=== PATIENT | female | born 1945 | race Caucasian/White ===

== ENCOUNTER → 2017-04-04 | Outpatient (CLI) | payer MEDICARE, BC ==
[2017-04-04 16:25] LABS: HEMATOCRIT 38.7 % (37.0-47.0); HEMOGLOBIN 12.9 g/dl (12.5-16.0); MEAN CELL VOLUME 98 fl (80.0-100.0); MEAN CORPUSCULAR HEMOGLOBIN 33 pg (27.0-31.0); MEAN CORPUSCULAR HGB CONC 33 g/dl (33.0-37.0); MEAN PLATELET VOLUME 10.6 fl (7.4-10.4); PLATELET COUNT 260 K/mm3 (130-400); RED BLOOD COUNT 3.94 M/mm3 (4.10-5.30); WHITE BLOOD COUNT 7.1 K/mm3 (4.8-10.8)
[2017-04-04 17:29] LABS: ERYTHROCYTE SEDIMENTATION RATE 7 mm/hr (0-30)
== END ==
LOC: COL.LAB 15:15
PROVIDERS: Orthopaedic Surgery
DX: Z47.1 Aftercare following joint replacement surgery (principal); M25.861 Other specified joint disorders, right knee; M25.561 Pain in right knee; Z96.651 Presence of right artificial knee joint

== ENCOUNTER → 2017-06-08 | Outpatient (CLI) | payer MEDICARE, BC | LOC: MC.RAD 13:38 | DX: N64.52 Nipple discharge (principal) ==

== ENCOUNTER → 2017-08-09 | Outpatient (CLI) | payer MEDICARE, BC | LOC: MC.RAD 13:47 | DX: N64.52 Nipple discharge (principal) ==

== ENCOUNTER 2017-08-16 05:19 | Inpatient (IN) | payer MEDICARE, BC ==
[~2017-08-16] VITALS: Ht 154.9 cm; Wt 76.6 kg
[2017-08-16] MEDS ORDERED: NEURONTIN300 MG/CAP PO (05:26)
[2017-08-16] MEDS ORDERED: PRINIVIL20 MG PO (05:27)
[2017-08-16] MEDS ORDERED: LUMIGAN 2.5 ML2.5 M1 OP (05:27)
[2017-08-16] MEDS ORDERED: MULTIPLE VITAMI1 CAP PO (05:27)
[2017-08-16] MEDS ORDERED: CALCIUM CARBON650 M2 (05:27)
[2017-08-16] MEDS ORDERED: ASPIRIN 81M81 MG/TA2 PO (05:29)
[2017-08-16 05:56] LABS: BASO % 0.3 % (0.0-2.0); EOS # 0.1 (0.0-0.7); EOS % 0.6 % (0-4.0); GRAN # 8.2 (1.4-6.5); GRAN % 83.1 % (42.2-75.2); LYMPH # 1.1 (1.2-3.4); LYMPH % 11.3 % (20.0-51.0); MEAN CELL VOLUME 92 fl (80.0-100.0); MEAN CORPUSCULAR HGB CONC 32 g/dl (33.0-37.0); MEAN PLATELET VOLUME 9.7 fl (7.4-10.4); MONO # 0.4 (0.1-0.6); MONO % 4.3 % (1.7-9.3); PLATELET COUNT 319 K/mm3 (130-400); RED BLOOD COUNT 3.63 M/mm3 (4.10-5.30); REDCELL DISTRIBUTION WIDTH-CV 12.9 % (11.5-14.5)
[2017-08-16 05:59] LABS: HEMATOCRIT 33.4 % (37.0-47.0); HEMOGLOBIN 10.8 g/dl (12.5-16.0); MEAN CORPUSCULAR HEMOGLOBIN 30 pg (27.0-31.0)
[2017-08-16 06:09] LABS: ALBUMIN 3.9 gm/dL (3.5-5.0); BILIRUBIN,TOTAL 0.6 mg/dL (0.0-1.0); CALCIUM 9.8 mg/dL (8.4-10.2); CREATININE, serum 1.06 mg/dL (0.52-1.25); POTASSIUM 4.6 mmol/L (3.4-5.0); TOTAL PROTEIN 7.2 gm/dL (6.4-8.2)
[2017-08-16 07:24] LABS: COLLECTION METHOD CLEAN CATCH
[2017-08-16 07:49] LABS: MUCOUS Present /lpf; PH 8 (5-8); SQUAMOUS EPITHELIAL 0-2 /hpf; URINE APPEARANCE Cloudy; URINE BACTERIA None Seen /hpf; URINE BILIRUBIN Negative (NEGATIVE); URINE BLOOD Negative (NEGATIVE); URINE COLOR Yellow; URINE GLUCOSE Negative (NEGATIVE); URINE KETONE Negative (NEGATIVE); URINE LEUKOCYTE ESTERASE Negative (NEGATIVE); URINE NITRATE Negative (NEGATIVE); URINE PROTEIN(semi-quant) Negative (NEGATIVE); URINE UROBILINOGEN Negative (NEGATIVE)
[2017-08-16 09:42] VITALS: BP 132/69; PULSE 71; TEMP 98.1
[2017-08-16 13:05] VITALS: BP 129/62; PULSE 77; TEMP 98.1
[2017-08-16 21:30] VITALS: BP 110/56; PULSE 101; TEMP 97.6
[2017-08-16 21:45] VITALS: BP 108/59; PULSE 100
[2017-08-16 22:00] VITALS: BP 112/59; PULSE 101
[2017-08-16 23:15] VITALS: BP 119/62; PULSE 103; TEMP 97
[2017-08-17] VITALS (7 sets, daily range): BP systolic 96–126; BP diastolic 40–69; PULSE 105–118; TEMP 97.7–99.2
[2017-08-17 06:53] LABS: HEMATOCRIT 33.3 % (37.0-47.0); HEMOGLOBIN 10.6 g/dl (12.5-16.0); MEAN CELL VOLUME 93 fl (80.0-100.0); MEAN CORPUSCULAR HEMOGLOBIN 30 pg (27.0-31.0); MEAN CORPUSCULAR HGB CONC 32 g/dl (33.0-37.0); MEAN PLATELET VOLUME 10.5 fl (7.4-10.4); PLATELET COUNT 342 K/mm3 (130-400); RED BLOOD COUNT 3.58 M/mm3 (4.10-5.30); REDCELL DISTRIBUTION WIDTH-CV 13.1 % (11.5-14.5)
[2017-08-17 07:06] LABS: CALCIUM 8.4 mg/dL (8.4-10.2); CREATININE, serum 1.14 mg/dL (0.52-1.25); POTASSIUM 4.3 mmol/L (3.4-5.0)
[2017-08-18 02:00] VITALS: BP 175/50; PULSE 73; TEMP 98.4
[2017-08-18 05:54] VITALS: BP 126/54; PULSE 110; TEMP 98.7
[2017-08-18 06:34] LABS: MEAN CELL VOLUME 93 fl (80.0-100.0); MEAN CORPUSCULAR HGB CONC 31 g/dl (33.0-37.0); MEAN PLATELET VOLUME 10.5 fl (7.4-10.4); PLATELET COUNT 299 K/mm3 (130-400); REDCELL DISTRIBUTION WIDTH-CV 13.4 % (11.5-14.5)
[2017-08-18 06:56] LABS: HEMATOCRIT 29.9 % (37.0-47.0); HEMOGLOBIN 9.4 g/dl (12.5-16.0); MEAN CORPUSCULAR HEMOGLOBIN 29 pg (27.0-31.0)
[2017-08-18 07:05] LABS: CALCIUM 8.5 mg/dL (8.4-10.2); CREATININE, serum 0.92 mg/dL (0.52-1.25)
[2017-08-18 10:00] VITALS: BP 136/92; PULSE 102; TEMP 98.2
[2017-08-18 13:42] VITALS: BP 119/53; PULSE 107; TEMP 98.3
[2017-08-18 16:54] VITALS: BP 123/53; PULSE 100; TEMP 98.7
[2017-08-18 21:40] VITALS: BP 136/56; PULSE 101; TEMP 98.1
[2017-08-19 02:24] VITALS: BP 130/56; PULSE 90; TEMP 97.9
[2017-08-19 05:04] VITALS: BP 134/60; PULSE 80; TEMP 98.1
[2017-08-19 10:00] VITALS: BP 142/75; PULSE 91; TEMP 97.9
[2017-08-19 13:53] VITALS: BP 132/78; PULSE 96; TEMP 98.2
[2017-08-19 17:32] VITALS: BP 143/77; PULSE 99; TEMP 99
[2017-08-19 22:14] VITALS: BP 147/74; PULSE 97; TEMP 98.4
[2017-08-20 01:38] VITALS: BP 154/72; PULSE 93; TEMP 98.2
[2017-08-20 05:48] VITALS: BP 140/66; PULSE 86; TEMP 98.1
[2017-08-20 10:21] VITALS: BP 140/69; PULSE 96; TEMP 98.4
[2017-08-20 13:51] VITALS: BP 136/69; PULSE 87; TEMP 98.8
[2017-08-20 17:12] VITALS: BP 156/69; PULSE 81; TEMP 98.3
[2017-08-20 21:37] VITALS: BP 149/73; PULSE 89; TEMP 98.4
[2017-08-21 02:21] VITALS: BP 147/67; PULSE 87; TEMP 98.9
[2017-08-21 05:40] VITALS: BP 149/68; PULSE 83; TEMP 98
[2017-08-21 07:52] LABS: CREATININE, serum 0.71 mg/dL (0.52-1.25); POTASSIUM 3.4 mmol/L (3.4-5.0)
[2017-08-21 10:10] VITALS: BP 129/65; PULSE 83; TEMP 98.2
[2017-08-21] MEDS ORDERED: NORCO 325 MG-51 TAB PO (12:23)
[2017-08-21] MEDS ORDERED: ZOFRAN 4MG T4 MG/TAB PO (12:25)
== END 2017-08-21 14:50 | disposition home or self-care (01) | DRG 330 ==
LOC: COL.ER 05:19 → SURG 07:24
PROVIDERS: Emergency Medicine; Surgery
PROC: 0DBB0ZX Excision of Ileum, Open Approach, Diagnostic (ICD-10-PCS; 2017-08-16)
PROC: 0DNB0ZZ Release Ileum, Open Approach (ICD-10-PCS; principal; 2017-08-16 16:30)
PROC: 0DQN0ZZ Repair Sigmoid Colon, Open Approach (ICD-10-PCS; 2017-08-16 16:30)
PROC: 0DNU4ZZ Release Omentum, Percutaneous Endoscopic Approach (ICD-10-PCS; 2017-08-16 16:30)
DX: K56.51 Intestinal adhesions [bands], with partial obstruction (principal); K91.71 Accidental puncture and laceration of a digestive system organ or structure during a digestive system procedure; I10 Essential (primary) hypertension
CPT/HCPCS: A4314; A9284; C1751; J0690; J0696; J1100; J1644; J1650; J2405; J2704; J3010; J7030; J7120; Q9967

== ENCOUNTER → 2017-10-03 | Outpatient (CLI) | payer MEDICARE, BC ==
[~2017-10-03] MED LIST: ASPIRIN 81M81 MG/TA2 PO; CALCIUM CARBON650 M2; LUMIGAN 2.5 ML2.5 M1 OP; MULTIPLE VITAMI1 CAP PO; NEURONTIN300 MG/CAP PO; NORCO 325 MG-51 TAB PO; PRINIVIL20 MG PO; ZOFRAN 4MG T4 MG/TAB PO
== END ==
LOC: MC.RAD 10:11
DX: Z12.31 Encounter for screening mammogram for malignant neoplasm of breast (principal); N64.52 Nipple discharge

== ENCOUNTER → 2017-10-17 | Outpatient (CLI) | payer MEDICARE, BC | LOC: MC.RAD 07:20 | DX: N63.20 Unspecified lump in the left breast, unspecified quadrant (principal) ==

== ENCOUNTER 2018-03-06 08:51 | Outpatient (RCR) | payer MEDICARE, BC | END 2018-06-04 | disposition home or self-care (01) | LOC: WSST | DX: R13.12 Dysphagia, oropharyngeal phase (principal); K21.9 Gastro-esophageal reflux disease without esophagitis | CPT/HCPCS: G8996-GN; G8997-GN ==

== ENCOUNTER → 2018-04-28 | Outpatient (CLI) | payer MEDICARE, BC | LOC: COL.RAD 08:18 | DX: K21.9 Gastro-esophageal reflux disease without esophagitis (principal) | CPT/HCPCS: G8996-GN; G8997-GN; G8998-GN ==

== ENCOUNTER → 2018-05-03 | Outpatient (CLI) | payer MEDICARE, BC | LOC: COL.RAD 07:59 | DX: K21.9 Gastro-esophageal reflux disease without esophagitis (principal); R49.0 Dysphonia | CPT/HCPCS: A9541 ==

== ENCOUNTER → 2018-12-12 | Outpatient (CLI) | payer MEDICARE, BC | LOC: MC.RAD 14:32 | DX: Z12.31 Encounter for screening mammogram for malignant neoplasm of breast (principal) ==

== ENCOUNTER → 2020-01-22 | Outpatient (CLI) | payer MEDICARE, BC | LOC: MC.RAD 11:39 | DX: Z12.31 Encounter for screening mammogram for malignant neoplasm of breast (principal); R92.1 Mammographic calcification found on diagnostic imaging of breast; N63.21 Unspecified lump in the left breast, upper outer quadrant ==

== ENCOUNTER → 2020-02-01 | Outpatient (CLI) | payer MEDICARE, BC | LOC: MC.RAD 08:59 | DX: N60.02 Solitary cyst of left breast (principal) ==

== ENCOUNTER → 2021-01-23 | Outpatient (CLI) | payer MEDICARE, BC | LOC: MC.RAD 09:45 | DX: Z12.31 Encounter for screening mammogram for malignant neoplasm of breast (principal) ==

== ENCOUNTER → 2022-01-25 | Outpatient (CLI) | payer MEDICARE, BC | LOC: MC.RAD 09:27 | DX: Z12.31 Encounter for screening mammogram for malignant neoplasm of breast (principal); N63.21 Unspecified lump in the left breast, upper outer quadrant ==

== ENCOUNTER → 2022-02-04 | Outpatient (CLI) | payer MEDICARE, BC | LOC: MC.RAD 07:40 | DX: N60.12 Diffuse cystic mastopathy of left breast (principal) ==

== ENCOUNTER 2022-06-18 22:15 | Observation (INO) | payer MEDICARE, BC ==
[~2022-06-18] VITALS: Ht 165.1 cm; Wt 79.5 kg
[~2022-06-18 22:15] MED LIST changes: +CALCIUM 600MG+D1 TAB PO; -CALCIUM CARBON650 M2; -MULTIPLE VITAMI1 CAP PO; +MULTIPLE VITAMI1 TA5 PO
[2022-06-18 23:01] LABS: BASO # 0.1 K/mm3 (0.0-0.2); BASO % 0.7 % (0.0-2.0); EOS # 0.1 K/mm3 (0.0-0.7); EOS % 1.4 % (0.0-4.0); GRAN # 4.5 K/mm3 (1.4-6.5); GRAN % 64.5 % (42.2-75.2); HEMATOCRIT 40.1 % (37.0-47.0); HEMOGLOBIN 13.1 g/dl (12.5-16.0); LYMPH # 1.7 K/mm3 (1.2-3.4); LYMPH % 24.7 % (20.0-51.0); MEAN CELL VOLUME 94 fl (80.0-100.0); MEAN CORPUSCULAR HEMOGLOBIN 31 pg (27-31); MEAN CORPUSCULAR HGB CONC 33 g/dl (33.0-37.0); MEAN PLATELET VOLUME 10.7 fl (7.4-10.4); MONO # 0.6 K/mm3 (0.1-0.6); MONO % 8.6 % (1.7-9.3); PLATELET COUNT 245 K/mm3 (130-400); RED BLOOD COUNT 4.25 M/mm3 (4.10-5.30)
[2022-06-18 23:25] LABS: ALBUMIN 4.2 gm/dL (3.4-4.8); BILIRUBIN,TOTAL 0.6 mg/dL (0.2-1.2); CALCIUM 9.8 mg/dL (8.4-10.2); CREATININE, serum 1.05 mg/dL (0.57-1.11); POTASSIUM 5.1 mmol/L (3.5-4.5); TOTAL PROTEIN 7.3 gm/dL (6.2-8.1)
[2022-06-19 00:34] LABS: COLLECTION METHOD CLEAN CATCH
[2022-06-19 00:39] LABS: PH 7.5 (5.0-8.5); URINE APPEARANCE Clear (CLEAR/HAZY); URINE BLOOD Negative (NEGATIVE); URINE COLOR Yellow (YELLOW); URINE GLUCOSE Negative (NEGATIVE); URINE KETONE Negative (NEGATIVE); URINE NITRATE Negative (NEGATIVE); URINE PROTEIN(semi-quant) Negative (NEGATIVE); URINE UROBILINOGEN 0.2 E.U/dL (0.2-1.0)
[2022-06-19 00:42] LABS: SQUAMOUS EPITHELIAL None Seen /hpf (0-10); URINE BACTERIA None Seen /hpf (NONE SEEN); URINE RBC 0-2 /hpf (0-2)
[2022-06-19] MEDS ORDERED: NIRAVAM0.25 MG PO (00:44)
[2022-06-19] MEDS ORDERED: NEURONTIN300 MG/CAP PO (00:45)
[2022-06-19] MEDS ORDERED: COZAAR 50MG50 MG/TAB PO (00:45)
[2022-06-19] MEDS ORDERED: XALATAN EYE DROPS OD (00:46)
[2022-06-19] MEDS ORDERED: PRILOSEC 20MG20 MG PO (00:46)
[2022-06-19] MEDS ORDERED: TYLENOL PM EXTR1 TA1 PO (00:47)
[2022-06-19] MEDS ORDERED: PRESERVISION1 SGL PO (00:48)
[2022-06-19] MEDS ORDERED: XANAX .25M0.25 MG/TA PO (01:19)
--- NOTE | 2022-06-19 02:30 | NUR ---
PT ARRIVES VIA ER CART TO ROOM 324. PT IS ABLE TO TRANSFER FROM CART TO BED ON OWN. UP TO BATHROOM AT THIS TIME. IVF TO LAC INFUSING WITHOUT REDNESS OR SWELLING.
[2022-06-19 02:42] VITALS: BP 140/72; PULSE 75; TEMP 98.4
--- NOTE | 2022-06-19 03:00 | NUR ---
PT IN BED. DENIES PAIN, ABD SOFT, BOWEL SOUNDS ACTIVE. IS NPO. DENIES NEED FOR PAIN OR NAUSEA MEDS AT THIS TIME. ORIENTED TO ROOM AND BED CONTROLS.
--- NOTE | 2022-06-19 05:00 | NUR ---
SBA TO BATHROOM, VOIDS AND BACK TO BED. DENIES PAIN OR NAUSEA AT THIS TIME. REMAINS NPO WITH IVF INFUSING.
[2022-06-19] MEDS ORDERED: CRANBERRY250 MG PO (06:46)
[2022-06-19 07:26] VITALS: BP 148/81; PULSE 77; TEMP 98.1
--- NOTE | 2022-06-19 08:21 | NUR ---
Patient stand by assist to the bathroom. Voiding adequately. Ivf per orders, she remains NPO. Denies nuasea & pain. She brushed her teeth & mouth swabs provided. Feels her abdomen is bloated, but passing some flatus. Will monitor.
[2022-06-19 11:30] VITALS: BP 147/75; PULSE 80; TEMP 97.3
--- NOTE | 2022-06-19 12:13 | NUR ---
Con[employer] Supervisor offered prayer and support with patient while spouse was in room.
--- NOTE | 2022-06-19 12:15 | NUR ---
Patient requesting her am medications. called & orders obtained and medication given per request.
--- NOTE | 2022-06-19 15:58 | NUR ---
Patient ready for discharge. I called and orders obtained. Patient feeling well. She tolerated her meal. She reports having had 2 stools. Denies pain and nausea. We reviewed discharge paperwork. Denies questions and concerns. Patient ambulated out with all belongings.
--- NOTE | 2022-06-19 16:34 | NUR ---
Meat And Seafood Manager met with patient for intake assessment/discharge planning; she presents alert and oriented and states, "I'm feeling good this morning." She informs she lives with her spouse Curt ([phone]) and adult daughter Willow ([phone]. Patient spouse had cardiac surgery last week and is now permanently unable to drive. During the intake her spouse and daughter arrive to patient bedside and patient gives verbal consent for this Meat And Seafood Manager to speak to her with family present. Patient reports their home has no necessary stairs as everything needed is all on one floor, including bedroom and bathroom. She reports it's accessible to her, with grabbars and a shower chair installed in the bathroom. She does not utilize any other DME, but has a walker and wheelchair available to her as needed. She states she is independent in her ADLs/IADLs, and has a history of bowel blockages and surgeries. Her pain is currently "managed beautifully." She informs her primary care physician is Dr. Washington Frazier and she obtains her medications at [facility] without any difficulties. Patient reports plan to go home at discharge and reports no needs. Family members confirm the same. Meat And Seafood Manager confirms DPOA-HC on file is current, with her spouse Curt as primary agent and her daughter Willow and two sons as alternates. *Discharge to home with family*
== END 2022-06-19 16:09 | disposition home or self-care (01) ==
LOC: COL.ER 22:15 → SURG 06-19 01:01 → COL.ER 06-19 01:01 → SURG 06-19 01:01
PROVIDERS: Emergency Medicine; ADMIT Surgery
DX: R10.31 Right lower quadrant pain (principal); Z90.49 Acquired absence of other specified parts of digestive tract
CPT/HCPCS: J1885; J7030; J7120

== ENCOUNTER → 2023-01-26 | Outpatient (CLI) | payer MEDICARE, BC ==
[~2023-01-26] MED LIST changes: +COZAAR 50MG50 MG/TAB PO; +CRANBERRY250 MG PO; +NIRAVAM0.25 MG PO; +PRESERVISION1 SGL PO; +PRILOSEC 20MG20 MG PO; +TYLENOL PM EXTR1 TA1 PO; +XALATAN EYE DROPS OD; +XANAX .25M0.25 MG/TA PO
== END ==
LOC: MC.RAD 07:52
DX: Z12.31 Encounter for screening mammogram for malignant neoplasm of breast (principal)

== ENCOUNTER → 2024-02-08 | Outpatient (CLI) | payer MEDICARE, BC | LOC: MC.RAD 10:55 | DX: Z12.31 Encounter for screening mammogram for malignant neoplasm of breast (principal) ==